=== PATIENT | male | born 2000 | race African-American/Black ===

== ENCOUNTER 2023-09-22 07:24 | Emergency (ER) | payer BC, OTHER | END 2023-09-22 08:10 | disposition home or self-care (01) | LOC: NAV ERS 07:24 | DX: H66.93 Otitis media, unspecified, bilateral (principal); H73.93 Unspecified disorder of tympanic membrane, bilateral; H61.21 Impacted cerumen, right ear; F17.290 Nicotine dependence, other tobacco product, uncomplicated | CPT/HCPCS: 99282 ==